=== PATIENT | female | born 1995 | race Hispanic/Latino ===

== ENCOUNTER 2017-12-18 13:40 | Emergency (ER) | payer BC, OTHER ==
[2017-12-18] MEDS ORDERED: Oxycodone/Acetaminophen 5/325 mg Tab PO STA (14:23)
[2017-12-18 14:25] VITALS: TEMP 98.8
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
[2017-12-18 15:48] VITALS: RESP 18
[2017-12-18 16:30] VITALS: BP 127/81; PULSE 75; O2SAT 98
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
--- NOTE | 2017-12-19 13:14 | CARD ---
APPROVED REPORT EKG Measurement Heart [id number] <Conclusion> Normal sinus rhythm Normal ECG
== END 2017-12-18 16:00 | disposition home or self-care (01) ==
LOC: ED 13:40
DX: S60.222A Contusion of left hand, initial encounter (principal); S66.212A Strain of extensor muscle, fascia and tendon of left thumb at wrist and hand level, initial encounter; S66.311A Strain of extensor muscle, fascia and tendon of left index finger at wrist and hand level, initial encounter; V49.49XA Driver injured in collision with other motor vehicles in traffic accident, initial encounter; W22.11XA Striking against or struck by driver side automobile airbag, initial encounter; Y92.410 Unspecified street and highway as the place of occurrence of the external cause; R07.89 Other chest pain